=== PATIENT | male | born 1940 | race Caucasian/White ===

== ENCOUNTER 2017-09-24 17:45 | Emergency (ER) | payer BC ==
--- NOTE | 2017-09-24 18:26 | EDPHY ---
H & P Stated Complaint: Transient abd pain/midback pain since last pm;no n/v/d/c Time Seen by Provider: 09/24/17 17:54 HPI/ROS: CHIEF COMPLAINT: Chest and abdominal pain, radiating to back HISTORY OF PRESENT ILLNESS: 76-year-old male with hypertension presents with chest and abdominal pain. He was awakened at 3:00 a.m. with severe mid abdominal pain, radiating to the back. The pain migrates to the mid chest and down to the lower abdomen, varies in location. Since then, the pain has been waxing and waning, from mild to severe, sometimes in his lower abdomen and other times in his lower chest. The pain completely resolves and varies from side to side. Associated with moderate pain between shoulder blades. No other associated symptoms. No prior similar episodes. REVIEW OF SYSTEMS: complete 10 point ROS negative except at noted in the HPI Source: Patient - Personal History Current Tetanus Diphtheria and Acellular Pertussis (TDAP): Yes Tetanus Vaccine Date: 2010 - Medical/Surgical History Hx Asthma: No Hx Chronic Respiratory Disease: Yes Hx Diabetes: No Hx Cardiac Disease: No Hx Renal Disease: No Hx Cirrhosis: No Hx Alcoholism: No Hx HIV/AIDS: No Hx Splenectomy or Spleen Trauma: No Other PMH: tracheal lesion. prostate cancer. numerous ortho injuries. HTN. GERD - Social History Smoking Status: Current every day smoker Drug Use: None Additional Social History: - Physical Exam Exam: General Appearance: Alert, pleasant, does not appear in pain Eyes: Pupils equal and round, no conjunctival pallor or injection ENT, Mouth: Mucous membranes moist Neck: Normal inspection Respiratory: no c/w tenderness, Lungs are clear to auscultation Cardiovascular: Regular rate and rhythm Gastrointestinal: Abdomen is soft and nontender, no pulsatile mass Back: Normal inspection, no tenderness Neurological: A&O, nonfocal, normal gait Skin: Warm and dry Extremities: Nontender, no pedal edema Psychiatric: Mood and affect normal Constitutional: Initial Vital Signs Temperature (C) 36.6 C 09/24/17 17:45 Heart Rate 58 L 09/24/17 17:45 Respiratory Rate 16 09/24/17 17:45 Blood Pressure 161/86 H 09/24/17 17:45 O2 Sat (%) 94 09/24/17 17:45 O2 Delivery Mode Room Air Allergies/Adverse Reactions: No Known Allergies Allergy (Verified 09/24/17 17:45) Home Medications: Medication Instructions Recorded Lisinopril [Zestril 20 mg (*)] 20 mg PO 09/24/17 Omeprazole 40 mg PO 09/24/17 Medical Decision Making - Diagnostics EKG Interpretation: EKG interpreted by me reveals sinus bradycardia, rate 48, T-wave inversions in leads III and AVF. Interpretation: Borderline EKG Imaging Results: Chest/Thorax CTA 09/24/17 18:22 Impression: 1. Normal caliber minimally atherosclerotic aorta. No dissection, aneurysm, or penetrating ulcer. 2. No acute pulmonary embolic disease. 3. Mild interstitial lung disease is minimally worse since December 2012. 4. Minimal increased right paratracheal and AP window lymphadenopathy may be reactive and related to underlying interstitial lung disease. 5. No suspicious pulmonary nodule or mass. 6. No acute intraabdominal process or explanation for abdominal pain. Findings discussed with emergency department physician, Daysi Mayen MD on September 24, 2017 at 1943 hours. Abdomen CTA 09/24/17 18:24 Impression: 1. Normal caliber minimally atherosclerotic aorta. No dissection, aneurysm, or penetrating ulcer. 2. No acute pulmonary embolic disease. 3. Mild interstitial lung disease is minimally worse since December 2012. 4. Minimal increased right paratracheal and AP window lymphadenopathy may be reactive and related to underlying interstitial lung disease. 5. No suspicious pulmonary nodule or mass. 6. No acute intraabdominal process or explanation for abdominal pain. Findings discussed with emergency department physician, Daysi Mayen MD on September 24, 2017 at 1943 hours. Imaging: Discussed imaging studies w/ banquet server on call Radiologist, I viewed and interpreted images myself ED Course/Re-evaluation: This pt presents with abd/chest pain radiating to upper back. Physical exam is normal. RUE BP 174/84, LUE BP 158/70 on my exam, concern for aortic dissection. EKG is unremarkable. CT chest/abd ordered. 1944: CT read by Dr. Cid is unremarkable. Results d/w pt and . Pain is now in mid-abdominal area. Abd is soft and nontender. Unclear etiology of pain. No evidence of serious etiology. Toradol 15mg IV given. Feels much better after Toradol and the pain has almost completely resolved. Abdomen remained soft and nontender. Warning signs discussed. Differential Diagnosis: Differential diagnosis includes though it is not limited to ACS, dissection, aneurysm, PE, appendicitis, cholecystitis, diverticulitis, pyelonephritis, bowel perforation, small bowel obstruction. - Data Points Laboratory Results: Laboratory Results 09/24/17 18:11 09/24/17 18:11 Medications Given: Discontinued Medications Ketorolac Tromethamine (Toradol) 15 mg IVP EDNOW ONE Stop: 09/24/17 19:59 Last Admin: 09/24/17 20:05 Dose: 15 mg Ondansetron HCl (Zofran) 4 mg IVP EDNOW ONE Stop: 09/24/17 20:02 Last Admin: 09/24/17 20:05 Dose: 4 mg Point of Care Test Results: Chemistry 09/24/17 09/24/17 18:16 18:15 POC Sodium 142 mEq/L mEq/L (135-145) POC Potassium 3.1 mEq/L L mEq/L (3.3-5.0) POC Chloride 103 mEq/L mEq/L (97-110) POC BUN 11 mg/dL mg/dL (7-23) POC Creatinine 0.8 mg/dL mg/dL (0.7-1.3) POC Glucose 95 mg/dL mg/dL (70-100) POC Troponin I 0.00 ng/mL ng/mL (0.00-0.08) ISTAT H&H 09/24/17 18:16 POC Hgb 17.0 gm/dL gm/dL (13.7-17.5) POC Hct 50 % % (40-51) Departure - Departure Disposition: Home, Routine, Self-Care Clinical Impression: Abdominal pain Qualifiers: Abdominal location: unspecified location Qualified Code(s): R10.9 - Unspecified abdominal pain Condition: Good Instructions: Abdominal Pain (ED) Additional Instructions: Sometimes we are unable to diagnose an obvious cause of abdominal pain in the Emergency Department. Based upon our evaluation today, we see no obvious explanation for your pain. Because more serious conditions can be difficult to diagnose early in the course of their presentation, we ask that you return to the Emergency Department in 12-24 hours for a recheck if you are still having pain. This is necessary to exclude the development of a more serious condition such as appendicitis or other intra-abdominal emergency. In the event your pain markedly increases before that time or you develop intractable vomiting or fever return to the Emergency Department immediately. Referrals: Miguel Archibald MD [Primary Care Provider] - 1-2 days without fail
[2017-09-24 18:30] LABS: PLATELET COUNT 170 10^3/uL (150-400)
[2017-09-24] MEDS ORDERED: IOPAMIDOL (ISOVUE 370) 100 ML BTL IV ONE ×2 (18:37→18:40)
[2017-09-24] MEDS ORDERED: KETOROLAC 15 MG/1 ML SDV IVP ONE (19:58)
[2017-09-24] MEDS ORDERED: ONDANSETRON 4 MG/2 ML VIAL IVP ONE (20:01)
--- NOTE | 2017-09-24 20:03 | CPEKG ---
Test Reason : abdominal pain radiating to back Blood Pressure : / mmHG Vent. Rate : 048 BPM Atrial Rate : 048 BPM P-R Int : 176 ms QRS Dur : 098 ms QT Int : 460 ms P-R-T Axes : 003 -25 -16 degrees QTc Int : 411 ms SINUS BRADYCARDIA BORDERLINE LEFT AXIS DEVIATION BORDERLINE T ABNORMALITIES, INFERIOR LEADS Confirmed by Nael Reed ([id number]) on 09/24/2017 8:02:17 PM Referred By: Confirmed By:Nael Reed
[2017-09-24 21:14] VITALS: BP 151/84
== END 2017-09-24 21:13 | disposition home or self-care (01) ==
DX: R10.9 Unspecified abdominal pain (principal); R07.9 Chest pain, unspecified; M54.9 Dorsalgia, unspecified; I10 Essential (primary) hypertension; K21.9 Gastro-esophageal reflux disease without esophagitis; F17.200 Nicotine dependence, unspecified, uncomplicated; Z85.46 Personal history of malignant neoplasm of prostate
CPT/HCPCS: 82435-PO; 82565-PO; 82947-PO; 84132-PO; 84295-PO; 84484-PO; 84520-PO; 85014-PO; 96374; J1885; J2405; Q9967

== ENCOUNTER → 2018-03-20 | Outpatient (CLI) | payer BC, OTHER ==
[~2018-03-20] MED LIST: IOHEXOL 300 mgI/ML (OMNIPAQUE) 150 ML BTL IV ONE
== END ==
LOC: FIMAGING 15:17
PROVIDERS: ATTEND Internal Medicine
DX: R59.0 Localized enlarged lymph nodes (principal); J98.4 Other disorders of lung
CPT/HCPCS: Q9967